=== PATIENT | male | born 1990 | race African-American/Black ===

== ENCOUNTER 2019-08-18 11:12 | Emergency (ER) | payer MEDICAID ==
[~2019-08-18] VITALS: Ht 167.6 cm; Wt 82.0 kg
[2019-08-18] MEDS ORDERED: FAMOTIDINE 20MG TABLET PO ONE (12:15)
[2019-08-18] MEDS ORDERED: DIPHENHYDRAMINE 25MG CAPSULE PO ONE (12:15)
[2019-08-18] MEDS ORDERED: PREDNISONE 20MG TABLET PO ONE (12:15)
[2019-08-18 12:36] VITALS: BP 119/69
== END 2019-08-18 12:38 | disposition home or self-care (01) ==
LOC: ER 11:12
DX: L50.0 Allergic urticaria (principal)
CPT/HCPCS: 99284; J7512; Q0163

== ENCOUNTER 2021-02-13 08:20 | Emergency (ER) | payer MEDICAID ==
[~2021-02-13] VITALS: Ht 167.6 cm; Wt 80.0 kg
[2021-02-13] MEDS ORDERED: PREDNISONE 20MG TABLET PO SCH (09:00)
[2021-02-13 09:10] LABS: HEMATOCRIT. 47.7 % (42.0-52.0); HEMOGLOBIN. 15.9 g/dL (14.0-18.0)
[2021-02-13 09:11] LABS: BASOPHILS % 0.5 % (0.0-2.0); EOSINOPHILS % 0.5 % (0.0-5.0); LYMPHOCYTES % 11.1 % (20.0-50.0); MEAN PLATELET VOLUME 9.1 fl (7.4-10.4); MONOCYTES % 5.1 % (2.0-8.0); NEUTROPHILS % 82.8 % (40.0-76.0); PLATELET 206 x1000/uL (130-400); RED CELL DISTRIBUTION WIDTH 13.7 % (11.6-14.6)
[2021-02-13 09:15] LABS: CHLORIDE 111 mEq/L (98-107)
[2021-02-13] MEDS ORDERED: P50 MT (11:36)
[2021-02-13 12:04] VITALS: BP 113/78
== END 2021-02-13 12:05 | disposition home or self-care (01) ==
LOC: ER 08:20
DX: S80.11XA Contusion of right lower leg, initial encounter (principal); Z98.890 Other specified postprocedural states; V29.9XXA Motorcycle rider (driver) (passenger) injured in unspecified traffic accident, initial encounter; Y93.89 Activity, other specified; Y92.89 Other specified places as the place of occurrence of the external cause; Y99.8 Other external cause status
CPT/HCPCS: 36415; 73590; 80053; 85025; 99284; J7512

== ENCOUNTER 2021-04-08 09:09 | Emergency (ER) | payer MEDICAID ==
[~2021-04-08] VITALS: Ht 167.6 cm; Wt 82.0 kg
[~2021-04-08 09:09] MED LIST: P50 MT
[2021-04-08] MEDS ORDERED: HYDROCODONE/ACETAMINOPHEN 5/325MG TABLET PO ONE (10:00)
[2021-04-08] MEDS ORDERED: ONDANSETRON 4MG ODT PO ONE (10:00)
[2021-04-08] MEDS ORDERED: IBUP-2030 MT (10:45)
[2021-04-08] MEDS ORDERED: HYDR-4001 MT (10:45)
[2021-04-08 10:50] VITALS: BP 130/85
== END 2021-04-08 11:08 | disposition home or self-care (01) ==
LOC: ER 09:24
DX: S89.81XA Other specified injuries of right lower leg, initial encounter (principal); W18.39XA Other fall on same level, initial encounter; Y93.89 Activity, other specified; Y92.89 Other specified places as the place of occurrence of the external cause; Y99.8 Other external cause status
CPT/HCPCS: 73562; 73590; 99284; L1830; Q0162; 29505

== ENCOUNTER 2021-09-16 19:15 | Emergency (ER) | payer MEDICAID, OTHER ==
[~2021-09-16] VITALS: Ht 167.6 cm; Wt 81.0 kg
[~2021-09-16 19:15] MED LIST changes: +HYDR-4001 MT; +IBUP-2030 MT
[2021-09-16] MEDS ORDERED: TETANUS, DIPHTHERIA, PERTUSSIS VAC/PF 0.5ML (>10YR OLD) IM ONE (20:00)
[2021-09-16] MEDS ORDERED: LIDOCAINE HCL/PF 1% 10 MG/ML 5ML VIAL INFIL ONE (20:00)
[2021-09-16] MEDS ORDERED: BACITRACIN ZINC OINT UDPKT TOP ONE (20:00)
[2021-09-16] MEDS ORDERED: BO1 TP (22:36)
[2021-09-16 22:39] VITALS: BP 121/75
[2021-09-16] MEDS ORDERED: IBUPROFEN 400MG TABLET PO ONE (22:45)
== END 2021-09-16 22:43 | disposition home or self-care (01) ==
LOC: ER 19:15
DX: S81.811A Laceration without foreign body, right lower leg, initial encounter (principal); S40.812A Abrasion of left upper arm, initial encounter; W22.8XXA Striking against or struck by other objects, initial encounter; Y93.89 Activity, other specified; Y92.89 Other specified places as the place of occurrence of the external cause; Y99.8 Other external cause status; F10.129 Alcohol abuse with intoxication, unspecified; Y90.0 Blood alcohol level of less than 20 mg/100 ml
CPT/HCPCS: 12002; 73562; 73590; 73610; 99284; J3490; 90715

== ENCOUNTER 2021-09-26 12:28 | Emergency (ER) | payer OTHER ==
[~2021-09-26] VITALS: Ht 167.6 cm; Wt 82.0 kg
[~2021-09-26 12:28] MED LIST changes: +BO1 TP
[2021-09-26] MEDS ORDERED: KETOROLAC 60MG/2ML VIAL IM ONE (13:45)
[2021-09-26 13:53] VITALS: BP 125/67
[2021-09-26] MEDS ORDERED: SULF1TAB48 MT (15:50)
[2021-09-26] MEDS ORDERED: BACITRACIN ZINC OINT UDPKT TOP ONE (16:00)
== END 2021-09-26 16:13 | disposition home or self-care (01) ==
LOC: ER 12:28
DX: L03.114 Cellulitis of left upper limb (principal); M79.645 Pain in left finger(s)
CPT/HCPCS: 73130; 96372; 99283; J1885

== ENCOUNTER 2023-09-28 18:24 | Emergency (ER) | payer MEDICAID, OTHER ==
[~2023-09-28] VITALS: Ht 172.7 cm; Wt 83.0 kg
[~2023-09-28 18:24] MED LIST changes: +SULF1TAB48 MT
[2023-09-28 18:34] VITALS: BP 127/75; PULSE 77; RESP 20; TEMP 98.1; O2SAT 97
[2023-09-28] MEDS: BACITRACIN ZINC OINT UDPKT TOP ONE (19:19)
== END 2023-09-28 19:34 | disposition home or self-care (01) ==
LOC: ER 18:24
DX: S61.210A Laceration without foreign body of right index finger without damage to nail, initial encounter (principal); G89.11 Acute pain due to trauma; Z79.899 Other long term (current) drug therapy; W26.0XXA Contact with knife, initial encounter; Y93.89 Activity, other specified; Y92.89 Other specified places as the place of occurrence of the external cause; Y99.8 Other external cause status
CPT/HCPCS: 99282

== ENCOUNTER 2024-05-22 05:49 | Emergency (ER) | payer MEDICAID, OTHER ==
[~2024-05-22] VITALS: Ht 162.6 cm; Wt 73.0 kg
[2024-05-22 05:53] VITALS: O2SAT 100
[2024-05-22 06:07] VITALS: BP 123/72; PULSE 59; RESP 16; TEMP 36.7; O2SAT 99
[2024-05-22] MEDS: LIDOCAINE HCL 1% 20ML VIAL INFIL ONE (06:48)
[2024-05-22] MEDS: CEFTRIAXONE SODIUM 500MG VIAL IM ONE (06:48)
[2024-05-22 06:50] LABS: CLARITY URINE CLEAR (CLEAR); COLOR URINE YELLOW (YELLOW); GLUCOSE URINE NEGATIVE (NEGATIVE); KETONES URINE NEGATIVE (NEGATIVE); LEUKOCYTE ESTERASE URINE NEGATIVE (NEGATIVE); NITRITE URINE NEGATIVE (NEGATIVE); OCCULT BLOOD URINE NEGATIVE (NEGATIVE); PH URINE 5.5 (4.5-8.0); PROTEIN URINE NEGATIVE (NEGATIVE); SPECIFIC GRAVITY URINE 1.025 (1.005-1.030); UROBILINOGEN URINE 0.2 E.U./dL (0.2-1.0)
[2024-05-22] MEDS ORDERED: DOXY150T23 MT (06:59)
== END 2024-05-22 07:03 | disposition home or self-care (01) ==
LOC: ER 05:49
DX: R30.0 Dysuria (principal); Z20.2 Contact with and (suspected) exposure to infections with a predominantly sexual mode of transmission; Z79.899 Other long term (current) drug therapy; Z98.890 Other specified postprocedural states
CPT/HCPCS: 87491; 87591; 81003; 96372; 99283; J0696; J3490; Z7610 ×2